=== PATIENT | male | born 1970 | race Caucasian/White ===

== ENCOUNTER 2023-05-18 20:58 | Emergency (ER) | payer BC ==
[2023-05-18] MEDS ORDERED: LACTATED RINGERS 1,000 ML IV ONE (21:45)
--- NOTE | 2023-05-18 21:57 | ED Cardiac General ---
History of Present Illness General Chief Complaint: Cardiac/General Problems Stated Complaint: IRREGULAR HEART BEAT Nursing Triage Note: PT AMB TO RM 10 WITH CC OF HEART PALPATATIONS AND CHEST PRESSURE. PT STATES WAS SITTING DOWN EATING DINNER WHEN HE BECAME DIZZY AND FELT LIKE HE COULD PASS OUT. PT REPORTS CHEST PRESSURE AND FELT HIS HEART RATE RISE AROUND 1944. DENIES CHEST PRESSURE AT TIME OF TRIAGE. PT DENIES CARDIAC HX. PT A&OX4 Source: patient, spouse History of Present Illness Date Seen by Provider: May 18, 2023 Time Seen by Provider: 21:10 Initial Comments PT ARRIVES VIA POV FROM HOME WITH C/O PALPITATIONS/SENSATION OF IRREGULAR HEART BEAT SINCE AROUND 1944, WHILE EATING DINNER SLIGHT SHORTNESS OF BREATH SLIGHT CHEST PRESSURE NO SWEATS, BUT HAS HAD CHILLS TODAY NO NAUSEA NO SWELLING IN LEGS/FEET OR PAIN IN CALVES NO DIZZINESS OR SYNCOPE NO HISTORY OF SIMILAR PT GOT A SUNBURN OVER MOST OF BODY LAST WEEKEND, THEN HAS BEEN SWIMMING ALL AFTERNOON, AND GOT MORE SUNBURNED HE DRANK SEVERAL BOTTLES OF WATER TODAY, AND 1 BOTTLE OF GATORADE TODAY HE STATES HE "GETS DEHYDRATED EASY" NO COUGH OR RECENT ILLNESS PT TAKES OMEPRAZOLE FOR GERD SYMPTOMS, NO OTHER MEDICATIONS PT DENIES SMOKING, ALCOHOL OR DRUG USE Allergies and Home Medications Allergies Coded Allergies: No Known Drug Allergies (Unverified , 05/18/23) Past Qqbrrcr-[id number]-[id number] Hx Patient Social History Tobacco Use?: No Substance use?: No Alcohol Use?: No Pt feels they are or have been: No Immunizations Up To Date Influenza Vaccine Up-to-Date: Yes; Up-to-Date First/Initial COVID19 Vaccinat: YES Second COVID19 Vaccination Rogers: YES Physical Exam Vital Signs Vital Signs - First Documented 05/18/23 21:05 Temp 36.2 Pulse 58 Resp 13 B/P (MAP) 127/80 (96) Pulse Ox 99 O2 Delivery Room Air Capillary Refill : Less Than 3 Seconds Height, Weight, BMI Height: '" Weight: lbs. oz. kg; BMI Method: General Appearance: No Apparent Distress, WD/WN, Thin HEENT: PERRL/EOMI Neck: Normal Inspection Respiratory: Normal Breath Sounds, No Accessory Muscle Use, No Respiratory Distress Cardiovascular: Regular Rate, Rhythm, Extra Beats (CONSISTENT WITH PVC'S ON MONITOR) Progress/Results/Core Measures Results/Orders Lab Results Laboratory Tests Test 05/18/23 21:11 Range/Units White Blood Count 11.0 4.3-11.0 10^3/uL Red Blood Count 4.52 4.30-5.52 10^6/uL Hemoglobin 14.7 13.3-17.7 g/dL Hematocrit 44 40-54 % Mean Corpuscular Volume 97 80-99 fL Mean Corpuscular Hemoglobin 33 25-34 pg Mean Corpuscular Hemoglobin Concent 34 32-36 g/dL Red Cell Distribution Width 12.6 10.0-14.5 % Platelet Count 234 130-400 10^3/uL Mean Platelet Volume 10.2 9.0-12.2 fL Immature Granulocyte % (Auto) 0 % Neutrophils (%) (Auto) 69 42-75 % Lymphocytes (%) (Auto) 23 12-44 % Monocytes (%) (Auto) 6 0-12 % Eosinophils (%) (Auto) 2 0-10 % Basophils (%) (Auto) 1 0-10 % Neutrophils # (Auto) 7.6 1.8-7.8 10^3/uL Lymphocytes # (Auto) 2.5 1.0-4.0 10^3/uL Monocytes # (Auto) 0.7 0.0-1.0 10^3/uL Eosinophils # (Auto) 0.2 0.0-0.3 10^3/uL Basophils # (Auto) 0.1 0.0-0.1 10^3/uL Immature Granulocyte # (Auto) 0.0 0.0-0.1 10^3/uL Sodium Level 140 135-145 MMOL/L Potassium Level 4.1 3.6-5.0 MMOL/L Chloride Level 106 98-107 MMOL/L Carbon Dioxide Level 24 21-32 MMOL/L Anion Gap 10 5-14 MMOL/L Blood Urea Nitrogen 14 7-18 MG/DL Creatinine 1.22 0.60-1.30 MG/DL Estimat Glomerular Filtration Rate 71 BUN/Creatinine Ratio 11 Glucose Level 69 L 70-105 MG/DL Calcium Level 9.5 8.5-10.1 MG/DL Corrected Calcium 9.3 8.5-10.1 MG/DL Magnesium Level 2.0 1.6-2.4 MG/DL Total Bilirubin 0.6 0.1-1.0 MG/DL Aspartate Amino Transf (AST/SGOT) 15 5-34 U/L Alanine Aminotransferase (ALT/SGPT) 15 0-55 U/L Alkaline Phosphatase 85 40-136 U/L Troponin I < 0.028 <0.028 NG/ML B-Type Natriuretic Peptide 25.3 <100.0 PG/ML Total Protein 7.1 6.4-8.2 GM/DL Albumin 4.2 3.2-4.5 GM/DL TSH Carter Testing 1.25 0.35-4.94 UIU/ML My Orders Orders - EVA SARMIENTO DO Ekg Tracing (05/18/23 21:08) Ed Iv/Invasive Line Start (05/18/23 21:11) Monitor-Rhythm Ecg Trace Only (05/18/23 21:11) Bnp Wing (05/18/23 21:11) Cbc With Automated Diff (05/18/23 21:11) Comprehensive Metabolic Panel (05/18/23 21:11) Magnesium (05/18/23 21:11) Thyroid Analyzer (05/18/23 21:11) Troponin I Wing (05/18/23 21:11) Chest 1 View, Ap/Pa Only (05/18/23 21:11) Ed Iv/Invasive Line Start (05/18/23 21:39) Lactated Ringers (Lr 1000 Ml Iv Solution (05/18/23 21:45) Medications Given in ED Current Medications Medications Dose Ordered Sig/Leyla Route Start Time Stop Time Status Last Admin Dose Admin Lactated Ringer's 1,000 ml @ 0 mls/hr Q0M ONCE IV 05/18/23 21:45 05/18/23 21:46 DC 05/18/23 21:57 1,000 MLS/HR Vital Signs/I&O 05/18/23 21:05 Temp 36.2 Pulse 58 Resp 13 B/P (MAP) 127/80 (96) Pulse Ox 99 O2 Delivery Room Air Blood Pressure Mean: 96 Departure Impression Primary Impression: PVCs (premature ventricular contractions) Disposition: 01 HOME, SELF-CARE Condition: Stable Departure-Patient Inst. Decision time for Depature: 22:45 Referrals: EVA ALMEIDA MD (PCP/Family) Primary Care Physician Patient Instructions: Ventricular premature beats Add. Discharge Instructions: INCREASE YOUR FLUID INTAKE--DRINK EQUAL AMOUNTS OF WATER AND GATORADE--DRINK ENOUGH SO YOU ARE URINATING EVERY 2 HOURS WHILE AWAKE HOME, REST TOMORROW AND KEEP COOL FOLLOW UP WITH YOUR DR IF SYMPTOMS PERSIST, RETURN TO ER IF SYMPTOMS WORSEN All discharge instructions reviewed with patient and/or family. Voiced understanding. Work/School Note: Work Release Form Date Seen in the Emergency Department: May 18, 2023 Return to Work: May 20, 2023 Restrictions: No Restrictions EVA SARMIENTO DO May 18, 2023 21:57
[2023-05-18 22:01] LABS: BASOPHILS # (AUTO) 0.1 10^3/uL (0.0-0.1); BASOPHILS % (AUTO) 1 % (0-10); EOSINOPHILS # (AUTO) 0.2 10^3/uL (0.0-0.3); EOSINOPHILS % (AUTO) 2 % (0-10); HEMATOCRIT 44 % (40-54); HEMOGLOBIN 14.7 g/dL (13.3-17.7); LYMPHOCYTES # (AUTO) 2.5 10^3/uL (1.0-4.0); LYMPHOCYTES % (AUTO) 23 % (12-44); MEAN CORPUSCULAR HEMOGLOBIN 33 pg (25-34); MEAN CORPUSCULAR HGB CONC 34 g/dL (32-36); MEAN CORPUSCULAR VOLUME 97 fL (80-99); MEAN PLATELET VOLUME 10.2 fL (9.0-12.2); MONOCYTES # (AUTO) 0.7 10^3/uL (0.0-1.0); MONOCYTES % (AUTO) 6 % (0-12); NEUTROPHILS # (AUTO) 7.6 10^3/uL (1.8-7.8); NEUTROPHILS % (AUTO) 69 % (42-75); PLATELET COUNT 234 10^3/uL (130-400)
[2023-05-18 22:19] LABS: ALANINE AMINOTRANSFERASE 15 U/L (0-55); ALBUMIN 4.2 GM/DL (3.2-4.5); ALKALINE PHOSPHATASE 85 U/L (40-136); BILIRUBIN,TOTAL 0.6 MG/DL (0.1-1.0); BUN/CREATININE RATIO 11; CALCIUM 9.5 MG/DL (8.5-10.1); CARBON DIOXIDE 24 MMOL/L (21-32); CHLORIDE 106 MMOL/L (98-107); CREATININE SERUM 1.22 MG/DL (0.60-1.30); GFR ESTIMATED 71; GLUCOSE 69 MG/DL (70-105); POTASSIUM 4.1 MMOL/L (3.6-5.0); SODIUM 140 MMOL/L (135-145); TOTAL PROTEIN 7.1 GM/DL (6.4-8.2)
[2023-05-18 22:39] LABS: TSH (THYROID ANALYZER) 1.25 UIU/ML (0.35-4.94)
[2023-05-18 22:56] VITALS: BP 125/74
--- NOTE | 2023-05-19 07:27 | Diagnostic Imaging Report ---
EXAMINATION: Chest 1 view HISTORY: Irregular heartbeat. COMPARISON: None available. FINDINGS: The lung volumes are normal. No focal consolidation is seen. No large pleural effusion or pneumothorax is seen. The cardiomediastinal silhouette is normal in size and contour. No acute osseous abnormality is seen. IMPRESSION: 1. No acute pleuroparenchymal process. Dictated by: Dictated on workstation # [id number]
== END 2023-05-18 22:56 | disposition home or self-care (01) ==
LOC: EDUNIT# 20:58 → ER 21:01
DX: I49.3 Ventricular premature depolarization (principal)
CPT/HCPCS: 36415; 71045; 80053; 83735; 83880; 84443; 84484; 85025; 93005; 93041